=== PATIENT | female | born 2005 | race Two or more races ===

== ENCOUNTER 2025-06-03 22:00 | Outpatient (CLI) | payer OTHER ==
[~2025-06-03] VITALS: Ht 167.6 cm; Wt 79.4 kg
[2025-06-03 20:31] VITALS: BP 101/64
[2025-06-03] MEDS ORDERED: PRENATAL TABLE1 EAC4 (22:14)
[2025-06-03 23:16] VITALS: BP 109/72
[2025-06-03] MEDS ORDERED: AMPICILLIN SODIUM 2,000 MG VIAL IV ONE (23:30)
[2025-06-03] MEDS ORDERED: MAGNESIUM SULFATE IN WATER 500 ML IV SCH (23:30)
[2025-06-03] MEDS ORDERED: RINGERS SOLUTION,LACTATED 1,000 ML IV SCH (23:30)
[2025-06-04 00:28] LABS: BASO % 0.5 % (0.1-1.2); EOS # 0.25 (0.04-0.54); EOS % 2.4 % (0.7-7.0); LYMPH # 2.10 (1.18-3.74); LYMPH % 20.0 % (19.3-53.1); MEAN PLATELET VOLUME 11.40 fl (9.4-12.4); MONO # 0.87 (0.24-0.82); MONO % 8.3 % (4.7-12.5); NEUT # 7.08 (1.56-6.13); NEUT % 67.3 % (34.0-71.1); RED CELL DISTRIBUTION WIDTH 12.7 % (11.6-14.4)
[2025-06-04 01:32] LABS: INR 0.94
[2025-06-04 01:34] LABS: ALT/SGPT 25.0 U/L (12-78); AST/SGOT 9.0 U/L (15-37); BILIRUBIN TOTAL 0.3 mg/dL (0.3-1.2); BUN CREA RATIO 33.0 (7.0-25.0); CREATININE SERUM 0.3 mg/dL (0.55-1.02); GFR 278.18; GLOBULINA 3.0 G/DL (2.4-3.5); GLUCOSE FASTING 78.0 mg/dL (65-100); OSMOLALITY SERUM 277.0 MOSM/KG (275-295)
[2025-06-04] MEDS ORDERED: MORPHINE SULFATE 4 MG/ML VIAL IV PRN (02:15)
[2025-06-04 04:00] VITALS: BP 113/66
[2025-06-04] MEDS ORDERED: AMPICILLIN SODIUM 1,000 MG VIAL IV SCH (04:00)
[2025-06-04 07:43] VITALS: BP 108/69
[2025-06-04 13:17] VITALS: BP 108/69
== END 2025-06-04 16:00 | disposition home or self-care (01) ==
LOC: OBS/DEL 22:00
PROVIDERS: ATTEND Obstetrics & Gynecology Gynecology
DX: O26.893 Other specified pregnancy related conditions, third trimester (principal); Z3A.30 30 weeks gestation of pregnancy